=== PATIENT | female | born 1985 | race Caucasian/White ===

== ENCOUNTER 2018-03-13 21:35 | Emergency (ER) | payer MEDICAID ==
[2018-03-13 21:40] VITALS: Ht 154.9 cm
[2018-03-13 23:25] LABS: BASOPHIL % 0.4 % (0-2)
[2018-03-13 23:26] LABS: PLATELET COUNT 406 x10^3mcL (130-400); RED CELL DISTRIBUTION WIDTH 15.7 % (11.5-14.5)
[2018-03-13 23:34] LABS: CALCIUM 8.7 mg/dL (8.5-10.1); CARBON DIOXIDE 25.8 mmol/L (21-32); CHLORIDE SERUM 101 mmol/L (98-107); CREATININE SERUM 0.6 mg/dL (0.6-1.0); GFR1 > 60 mL/min; GLUCOSE SERUM 154 mg/dL (74-106); POTASSIUM SERUM 3.7 mmol/L (3.5-5.1); SODIUM SERUM 136 mmol/L (136-145)
[2018-03-13 23:39] LABS: ALKALINE PHOSPHATASE 100 U/L (46-116); ALT/SGPT 150 U/L (14-59); AST/SGOT 105 U/L (15-37); BILIRUBIN TOTAL 0.2 mg/dL (0.20-1.00); TOTAL PROTEIN, SERUM 7.6 g/dL (6.4-8.2)
[2018-03-13 23:40] LABS: ALBUMIN 3.2 g/dL (3.4-5.0)
[2018-03-14 00:18] VITALS: BP 132/80
== END 2018-03-14 00:18 | disposition home or self-care (01) ==
LOC: ED 21:35
PROVIDERS: Emergency Medicine
DX: R42 Dizziness and giddiness (principal); B34.9 Viral infection, unspecified; D72.829 Elevated white blood cell count, unspecified
CPT/HCPCS: 36415; Q0092